=== PATIENT | female | born 1975 | race African-American/Black ===

== ENCOUNTER 2018-06-06 10:00 | Day surgery (SDC) | payer OTHER, MEDICAID ==
[2018-06-05 09:24] LABS: HEMATOCRIT 41.9 % (36.0-48.0); HEMOGLOBIN 13.6 g/dL (12-16); MCHC 32.5 g/dL (31.0-37.0); MCV 89.3 fL (80.0-100.0); MEAN PLATELET VOLUME 8.4 fL (7.4-10.4); RBC 4.69 10x6/uL (4.00-5.40); RDW 12.9 % (11.5-14.5); WBC 13.8 10x3/uL (4.8-10.8)
[~2018-06-06] VITALS: Ht 624.8 cm; Wt 84.4 kg
[~2018-06-06 10:00] MED LIST: FLUTICASONE PRO16 GM NASAL; HCTZ25 MG PO; IBUPROFEN800 MG PO; LAMICTAL25 MG PO; TROKENDI XR PO; VITAMIN D50000 UNIT PO; ZALEPLON; ZANAFLEX2 M1 PO; ZOFRAN8 MG PO; ZOLOFT100 MG PO
[2018-06-06 11:33] VITALS: BP 124/73; Ht 624.8 cm; Wt 84.4 kg
--- NOTE | 2018-06-06 17:05 | NUR ---
REC'D FROM RR. FAMILY AT BEDSIDE. DRESSING CDI TO LLE. BOOT TO FOOT IN USE. ICE PACK APPLIED. FL TRAY BROUGHT TO PT.
--- NOTE | 2018-06-06 17:24 | NUR ---
UP TO BATHROOM WITH ASSIST OF WALKER. VOIDED WITHOUT DIFFICULTY. WIGGLED TOES BUT COULD NOT FEEL THEY WERE MOVING. EATING FL DIET. FAMILY AT BEDSIDE.
--- NOTE | 2018-06-06 17:35 | NUR ---
TOLERATED FL DIET. IV DC'D WITH CATHETER INTACT. FAMILY AT BEDSIDE.
--- NOTE | 2018-06-06 18:10 | NUR ---
WRITTEN AND VERBAL DC INST. GIVEN TO PT ALONG WITH RX. VERBALIZED UNDERSTANDING.
--- NOTE | 2018-06-06 18:25 | NUR ---
DC'D HOME WITH FAMILY VIA PRIVATE VEHICLE. TAKEN TO VEHICLE VIA WC. STABLE AT TIME OF DC.
--- NOTE | 2018-06-07 16:59 | OP ---
PATIENT NAME: MAHSA MICHAUD MEDICAL RECORD: [id number] :75 LOCATION:D.OPS ADMISSION DATE: SURGEON: WU SEGUNDO DATE OF OPERATION: 06/06/2018 SURGEON: Wu Segundo DPM PREOPERATIVE DIAGNOSES: 1. Hallux abductovalgus, left foot. 2. Posterior tibial tendon tear, left lower extremity. POSTOPERATIVE DIAGNOSES: 1. Hallux abductovalgus, left foot. 2. Posterior tibial tendon tear, left lower extremity. PROCEDURES: 1. Sen bunionectomy, left foot. 2. Repair of posterior tibial tendon tear, left foot. ANESTHESIA: General. HEMOSTASIS: Pneumatic ankle tourniquet inflated to 250 mmHg. ESTIMATED BLOOD LOSS: Minimal. MATERIALS: One 2.5 mm Songbird headless Dart-Fire screw. INJECTABLES: 30 cc 0.5% bupivacaine plain. INDICATIONS: The patient has a longstanding history of pain associated with both a bunion deformity of the left foot and also a tear of the posterior tibial tendon. An MRI was obtained, which confirmed the presence of the tear. I have reviewed with her the risks and benefits of the procedures, complications were discussed. All questions were answered. She was appropriately consented for the above-mentioned procedures. DESCRIPTION OF THE PROCEDURE: PROCEDURE #1: The patient was brought in the operating room and placed on the operating table in supine position. A timeout was called with Dr. Segundo, identified the patient, the surgical site, and surgery to be performed. Once appropriate anesthesia was obtained, the foot was prepped and draped in the usual aseptic manner. The pneumatic ankle tourniquet was inflated to 250 mmHg on the well-padded left ankle. Attention was directed to the dorsal aspect of the first metatarsophalangeal joint where a 6 cm linear incision was made. This incision was just medial to the extensor hallucis longus tendon. This incision was carried deep to soft tissue with care being taken to retract all vital neurovascular structures. All bleeders were cauterized along the way. The periosteum was then reflected from the head of the first metatarsal and the base of the proximal phalanx, thus exposing the hypertrophied medial eminence and the joint itself. Utilizing a sagittal saw, the hypertrophied medial eminence was resected. Next, utilizing a OPERATIVE REPORT [id number] MAHSA MICHAUD sagittal saw, a V-shaped osteotomy was created in the head of the first metatarsal. This is a through and through osteotomy. The capital fragment was translocated laterally and impacted upon the first metatarsal shaft. Next, utilizing manufacture's recommended technique, one 2.5x 18 mm headless screw was placed across the osteotomy. Excellent compression was noted with placement of the screw. All remaining overhanging bone from the medial aspect of the first metatarsal shaft was removed. The surgical site was then irrigated with copious amounts of normal sterile saline. The periosteum was then reapproximated and coapted using 3-0 Vicryl. The subQ was then reapproximated and coapted using 4-0 Vicryl. Skin was then reapproximated and coapted using 4-0 nylon. PROCEDURE #2: Repair of posterior tibial tendon, left lower extremity. Attention was directed to the medial aspect of the left ankle where a 5 cm linear incision was made. This incision was carried deep through soft tissue with care being taken to retract all vital neurovascular structures. All bleeders were cauterized along the way. Dissection was then carried deeper into the foot to the level of the posterior tibial tendon. The tendon was then examined and found to have a 2 cm laceration at the proximal aspect of the tendon near the insertion on the navicular. A second laceration was then debrided and repaired with 3-0 Vicryl. The surgical site was then investigated for any remaining pathological tissue and none was noted. The surgical site was then irrigated with copious amounts of normal sterile saline. The paratenon was then reapproximated and coapted using 4-0 Vicryl. The subQ was then reapproximated and coapted using 4-0 Vicryl and the skin was reapproximated and coapted using 4-0 nylon. A dressing consisting of Xeroform, 4 x 4s, Kerlix, and a posterior splint was applied to the left lower extremity. The pneumatic ankle tourniquet was deflated and cap refill time is immediate to all digits of the left foot. The patient tolerated the procedure and anesthesia well. She left the operating room with vital signs stable and capillary refill time intact. The patient was discharged home with instructions to ice and elevate her foot. She has crutches to offload the foot. She is currently in a splint. We will place her in a boot next week. She has a boot at home. I provided her with my cell phone number for any after difficulties. She was provided with prescriptions for [place] 7.5/325, #30; ibuprofen 800 mg, #30, and Zofran 4 mg #20. There were no complications with this procedure. We will follow up with her next week. TRANSINT:[id number] Voice Confirmation ID: [id number] DOCUMENT ID: [id number] OPERATIVE REPORT [id number] MAHSA MICHAUD DAVID J at 1659 CC: [id number] DICTATION DATE: 06/06/18 1647 FELT CUTTER: 06/07/18 0010 [facility] 06/06/[address] [id number]
== END 2018-06-06 18:25 | disposition home or self-care (01) ==
LOC: D.OPS 10:00 → D.PAN 13:30 → D.OPS 18:25
PROVIDERS: Anesthesiology; ATTEND Podiatrist
DX: M20.12 Hallux valgus (acquired), left foot (principal); S96.812A Strain of other specified muscles and tendons at ankle and foot level, left foot, initial encounter; X58.XXXA Exposure to other specified factors, initial encounter